=== PATIENT | female | born 1960 | race Caucasian/White ===

== ENCOUNTER 2016-08-15 07:11 | Day surgery (SDC) | payer OTHER ==
[2016-08-06 11:14] LABS: BASOPHILS 0.2 %; BASOPHILS ABSOLUTE 0.02 10/3/uL (0.0-0.16); EOSINOPHILS 0.2 %; EOSINOPHILS ABSOLUTE 0.02 10/3/uL (0.0-0.53); HEMATOCRIT 47.9 % (36.0-48.0); HEMOGLOBIN 16.2 g/dL (12.0-16.0); IMMATURE GRANULOCYTES 0.2 %; IMMATURE GRANULOCYTES ABSOLUTE 0.02 10/3/uL (0.0-0.11); LYMPHOCYTES 23.9 %; MEAN CORPUS HGB CONC 33.8 g/dL (32.0-36.0); MEAN CORPUSCULAR HEMOGLOB 31.5 pg (26.0-34.0); MEAN PLATELET VOLUME 10.2 fL (9.2-13.0); MONOCYTES 4.3 %; MONOCYTES ABSOLUTE 0.47 10/3/uL (0.21-1.20); NEUTROPHILS 71.2 %; NEUTROPHILS ABSOLUTE 7.75 10/3/uL (2.02-8.40); PLATELET COUNT 201 10/3/uL (150-400); RBC DISTRIBUTION WIDTH 13.7 % (12.0-16.0); RED CELL COUNT 5.15 10/6/uL (4.0-5.6); WHITE BLOOD CELLS 10.9 10/3/uL (4.5-10.5)
[2016-08-06 11:15] LABS: MANUAL DIFF NO %
[2016-08-06 11:33] LABS: A/G RATIO 1.1 (0.7-1.9); ALBUMIN 3.7 G/DL (3.5-5.0); ALKALINE PHOSPHATASE 104 U/L (45-117); BUN (BLOOD UREA NITROGEN) 8 MG/DL (6-23); CALCIUM, SERUM 8.9 MG/DL (8.5-10.4); CHLORIDE, SERUM 112 MMOL/L (96-112); CO2 (CARBON DIOXIDE) 24 MMOL/L (24-34); CREATININE 0.74 MG/DL (0.55-1.02); GFR AFRICAN AMERICAN 104 ML/MIN (>=60); GFR NON AFRICAN AMERICAN 89 ML/MIN (>=60); GLOBULIN 3.3 G/DL (2.5-4.1); GLUCOSE, SERUM 116 MG/DL (60-99); SGOT(AST) 9 U/L (5-40); SGPT(ALT) 17 U/L (5-65); TOTAL BILIRUBIN 0.4 MG/DL (0-1.2)
[2016-08-06 11:34] LABS: SODIUM, SERUM 146 MMOL/L (135-148)
--- NOTE | ~2016-08-15 | OP ---
Record Of Operation [facility] [address] [place]. [address] NAME: TASHA JAIN : 56 STATUS : [facility]#: [id number] AGE: 56 ADM/REG DATE : 08/15/16 MR#: [id number] REPORT SERV DATE: 08/15/16 DICTATED BY: LORENA ARSHAD DATE: 08/15/16 REPORT STATUS : Draft TRANSCRIBED BY: MODL DATE: 08/15/16 DATE OF PROCEDURE: 08/15/2016 PREOPERATIVE DIAGNOSIS: Right breast cancer. POSTOPERATIVE DIAGNOSIS: Right breast cancer. PROCEDURE: Right breast segmentectomy and right axillary sentinel lymph node biopsy. INDICATION FOR THE PROCEDURE: Ms. Jain is a 56-year-old female, who is a very heavy smoker, who was diagnosed with a right breast grade 1 invasive ductal cancer. ER/ID positive, HER2 negative with a gross fraction of 5%. Her biopsy and diagnosis were performed at an outside facility. When I saw the patient, she has extremely busy breast tissue bilaterally. An MRI was ordered; however, the patient was unable to tolerate the MRI secondary to anxiety and claustrophobia. We will forego the MRI and move forward with surgery. Although, this tumor is close to 2 cm in size grossly. The patient is strongly motivated for breast preservation. She would likely have a significant cosmetic change in the right breast with volume loss, but is willing to move forward with this. She has a very poor candidate for mastectomy with reconstruction secondary to her long and quite involved smoking history. The patient presented for lymphoscintigraphy scan earlier today showing good uptake in the right axilla. OPERATIVE FINDINGS: After appropriate consent was on the chart, the patient was taken to the operating room in supine position. She was placed under general anesthesia without any complications. Ultrasound was utilized to revisualize the tumor which is easily palpable at the 10 o'clock position, 4 cm from the nipple. Additionally, the gamma probe was placed in the right axilla and good uptake noted. Methylene blue was not used. The right breast and axilla were prepped and draped in sterile fashion. An incision was made in a circum- vertical fashion overlying the palpable tumor. I did feel like it was too far from the areolar edge in a smoker to try to create a flap over that distance. Sharp dissection was carried down to the level of breast parenchyma and flaps created in all directions around the palpable tumor. The palpable tumor was excised en bloc. Marked with sutures and sent for immediate evaluation for gross margins status. The pathologist did slice the tumor and brought it back into the room, we appeared to be centrally located in the segmentectomy site with the closest margin of 8 mm. No additional breast tissue will be taken. The wound was copiously irrigated with warm saline and hemostasis was achieved. Local anesthetic infiltrated in the skin and soft tissue and the incision closed in two layers of Monocryl. The right axillary sentinel node biopsy was performed in routine fashion. The inferior axillary hairline was the area of highest uptake and an incision was made here. Sharp dissection was carried down to the level of the axillary fat pad and two sentinel lymph nodes were excised. [place] lymph node #1 had an ex-vivo count of 3023. [place] node #2 had an ex-vivo count of 5145. Both lymph nodes were soft and were sent for permanent pathology. The wound was copiously irrigated with warm saline. Hemostasis was achieved. Local anesthetic was infiltrated in the skin and soft tissues. The incision was closed in two layers of Monocryl. The skin was cleansed and dried. Mastisol and Steri-Strips were applied. Burn fluff and a binder were placed on the patient prior to awakening. All counts Record Of Operation [address] [address] NAME: TASHA JAIN : 56 STATUS : [facility] PAT#: [id number] AGE: 56 ADM/REG DATE : 08/15/16 MR#: [id number] REPORT SERV DATE: 08/15/16 DICTATED BY: LORENA ARSHAD DATE: 08/15/16 REPORT STATUS : Draft TRANSCRIBED BY: MARYANNE DATE: 08/15/16 were correct at the end of the case. ESTIMATED BLOOD LOSS: Approximately 30 mL. SPECIMEN: Right breast segment at 10 o'clock and right axillary sentinel node x1. The patient was awoken from anesthesia without complication and taken to the PACU in stable condition for recovery. MK/MARYANNE Lorena Arshad MD / [id number] CC: MD Jose Bowman M.D. [facility]
[~2016-08-15 07:11] MED LIST: ADVAIR250 INH; METHOC500B PO; NEUR600 PO; PERCOCET 10/3251 TAB PO; PROAIR HFA INH; ZANTAC 150 PO
== END 2016-08-15 14:30 | disposition home or self-care (01) ==
LOC: SDC 07:11
PROVIDERS: Surgery Surgical Oncology
PROC: 07B50ZX Excision of Right Axillary Lymphatic, Open Approach, Diagnostic (ICD-10-PCS; 2016-08-15)
PROC: 0HBT0ZX Excision of Right Breast, Open Approach, Diagnostic (ICD-10-PCS; principal; 2016-08-15 10:45)
DX: C50.411 Malignant neoplasm of upper-outer quadrant of right female breast (principal); J44.9 Chronic obstructive pulmonary disease, unspecified; K21.9 Gastro-esophageal reflux disease without esophagitis; Z88.2 Allergy status to sulfonamides; F17.210 Nicotine dependence, cigarettes, uncomplicated; M54.30 Sciatica, unspecified side; M81.0 Age-related osteoporosis without current pathological fracture; K64.9 Unspecified hemorrhoids; Z90.710 Acquired absence of both cervix and uterus; Z87.442 Personal history of urinary calculi; G89.29 Other chronic pain; M54.9 Dorsalgia, unspecified; Z79.899 Other long term (current) drug therapy; Z79.51 Long term (current) use of inhaled steroids; Z79.891 Long term (current) use of opiate analgesic
CPT/HCPCS: 71020; 78195; 80053; 85025; 88307; 88342; 93005; 94640; A9541; J0690; J2250; J2405; J3010